=== PATIENT | female | born 1960 | race Caucasian/White ===

== ENCOUNTER 2019-04-20 03:38 | Inpatient (IN) ==
[2019-04-20] MEDS ORDERED: MORPHINE IV ONE (03:46)
[2019-04-20 04:06] LABS: BASO# 0.02 X1000 (0.0-0.2); BASO% 0.4 % (0.0-0.8); EOS# 0.06 X1000 (0.0-0.7); EOS% 1.1 % (0.0-10.0); HEMOGLOBIN 12.5 g/dL (12.0-16.0); LYMPH# 1.57 X1000 (1.2-3.4); LYMPH% 28.4 % (20.5-51.1); MCH 32.4 PG (27-31); MCHC 32.1 g/dL (33-37); MONO# 0.44 X1000 (0.11-0.59); MPV 9.3 FL (7.4-10.4); NEUT# 3.44 X1000 (1.4-6.5); NEUT% 62.1 % (42.2-75.2); PLT 305 X1000 (130-400); RBC 3.86 XMIL (4.2-5.4); WBC 5.53 X1000 (4.8-10.8)
[2019-04-20 04:43] LABS: AGAP 15; ALB/GLOB RATIO 1.7; ALKALINE PHOSPHATASE 119 U/L (32-104); BUN 16 mg/dL (8-22); CALCIUM 9.1 mg/dL (8.8-10.2); CHLORIDE 102 mmol/L (98-107); COSMO 285; CREATININE 0.7 mg/dL (0.5-0.9); ESTIMATED GFR > 60; GLUCOSE 169 mg/dL (70-104); GOT 27 U/L (10-30); GPT 23 U/L (10-36); POTASSIUM 3.7 mmol/L (3.5-5.1); SODIUM 140 mmol/L (136-145); TCO2 23 mmol/L (25-35); TOTAL BILIRUBIN 0.15 mg/dL (0.20-1.00); TOTAL PROTEIN 6.4 g/dL (6.3-8.3)
[2019-04-20 04:47] LABS: INR 0.95; PROTIME 12.7 Seconds (11.0-16.0)
[2019-04-20 04:48] LABS: PTT 26.2 Seconds (22.3-41.8)
--- NOTE | 2019-04-20 05:16 | PROVIDER DOCUMENTATION ---
HPI-General Adult - General Chief Complaint: Hip Injury Stated Complaint: FALL, HIP FX. Time Seen by Provider: 04/20/19 03:50 Source: patient, EMS Allergies/Adverse Reactions: Patient Allergies Allergy/AdvReac Type Severity Reaction Status Date / Time formaldehyde Allergy RASH Verified 01/14/19 09:08 Home Medications: Home Medication List Medication Instructions Recorded Confirmed Last Taken Type Cyclobenzaprine [Flexeril] 10 mg PO PRN PRN 10/12/15 01/13/19 12/14/17 19:00 History Estradiol 2 mg PO DAILY 10/12/15 01/13/19 12/14/17 06:00 History Lamotrigine 200 mg PO BID 10/12/15 01/13/19 12/14/17 06:00 History Ropinirole [Requip] 2 mg PO QHS 10/12/15 01/13/19 12/14/17 19:00 History Cholecalciferol (Vit D3) [Vitamin 300 mg PO DAILY 12/09/17 01/13/19 12/14/17 06:00 History D] Ergocalciferol (Vitamin D2) 1 dose PO Q7D 12/09/17 01/13/19 12/11/17 06:00 History [Vitamin D] Trazodone [Desyrel] 50 mg PO DAILY 12/09/17 01/13/19 12/14/17 19:00 History Ziprasidone HCl 80 mg PO DAILY 12/09/17 01/13/19 12/14/17 19:00 History Sertraline [Zoloft] 50 mg PO TID 12/15/17 01/13/19 12/13/17 15:00 History Hydrocodone/APAP 7.5 mg/325 mg 1 ea PO Q6H PRN PRN #12 tab 02/02/18 01/13/19 Unknown Rx [Lasara-7.5] Tramadol [Ultram] 50 mg PO Q6H PRN PRN #22 tab 01/13/19 Unknown Rx Cyclobenzaprine [Flexeril] 10 mg PO TID #20 tab 01/14/19 Unknown Rx Meloxicam [Mobic] 15 mg PO DAILY #20 tab 01/14/19 Unknown Rx - History of Present Illness -Gen Adult Nature of Presenting Problems: Pt presents s/p fall with left hip pain, pt had a trip and fall at home, landed on left side, now with sharp pain, constant, no radiation, pt denies f/c, saenz ,cp, sob, cough, ap, n/v/d. Pt is lying in bed in no acute distress. Location of Pain/Injury: reports: lower extremity (left hip) Pain Radiation: reports: no radiation Quality of Pain: reports: sharp Severity: reports: severe Onset/Duration: reports: just prior to arrival Timing: reports: still present Context/Activities at Onset: reports: none Modifying Factors: improves with: nothing Associated Symptoms: reports: denies symptoms Similar Symptoms Previously?: No Recently seen or treated by another doctor?: No Review of Systems - Adult - REVIEW OF SYSTEMS - ADULT Constitutional: reports: no symptoms reported Eyes: reports: no symptoms reported Ears, Nose, Mouth & Throat: reports: no symptoms reported Cardiovascular: reports: no symptoms reported Respiratory: reports: no symptoms reported Gastrointestinal: reports: no symptoms reported Genitourinary: reports: no symptoms reported Musculoskeletal: reports: see HPI Integumentary: reports: no symptoms reported Neurological: reports: no symptoms reported Psychiatric: reports: no symptoms reported Endocrine: reports: no symptoms reported Hematologic/Lymphatic: reports: no symptoms reported Allergic/Immunologic: reports: no symptoms reported All Other Systems: Reviewed and Negative Past History - Adult - PAST MEDICAL HISTORY-ADULT Review of Records: reports: Old Records Reviewed, Nursing Assessment Review, Medications Reviewed, Social history reviewed & non-contributory. Major Childhood Illnesses: reports: denies history Cardiovascular: reports: HTN Respiratory: reports: denies history Gastrointestinal: reports: denies history Obstetrical/Gynecological: reports: denies history Genitourinary: reports: denies history Musculoskeletal: reports: chronic pain (back) Neurological: reports: denies history Psychiatric: reports: bipolar, other (ADHD) Endocrine/Immune: reports: hypoglycemia Other Conditions: reports: denies history - PRIOR SURGERIES/PROCEDURES Surgical/Procedure History: reports: cholecystectomy, hysterectomy, tonsillectomy, hernia repair - PRIOR HOSPITALIZATIONS Prior Hospitalizations: reports: for other non-related - IMMUNIZATION STATUS Childhood Immunizations: See Nurse Assessment Flu Vaccine: See Nurse Assessment - FAMILY HISTORY Family History: reviewed, not pertinent Physical Exam-General - PHYSICAL EXAM-ADULT Initial Vital Signs Reviewed: Yes - CONSTITUTIONAL General Appearance: appears well - EYES Eyes: PERRL/EOMI - HEAD, EARS, NOSE, MOUTH & THROAT HENMT: normocephalic/atraumatic - NECK Neck: normal inspection - RESPIRATORY Respiratory: lungs clear, no respiratory distress, no accessory muscle use - CARDIOVASCULAR Cardiovascular: regular rate, rhythm - GASTROINTESTINAL (ABDOMEN) Abdominal Exam: normal bowel sounds, non tender, soft - LYMPHATIC Lymphatic: no adenopathy - MUSCULOSKELETAL Back Exam: normal inspection, no CVA tenderness, no vertebral tenderness Extremity: deformity, tenderness (left hip). negative: normal range of motion, normal inspection (shortened and ext rotated LLE) - SKIN Integumentary: normal color - NEUROLOGIC Neurologic: grossly normal - PSYCHIATRIC Psych/Mental Status: normal mood/affect Progress - PLAN OF CARE/RESULTS Progress/Plan/Lab Results: Vital Signs - 8 hr 04/20/19 03:46 04/20/19 03:48 Temperature 97.6 F Pulse Rate 79 78 Respiratory Rate 16 19 Blood Pressure 218/114 218/114 O2 Sat by Pulse Oximetry 96 94 L Laboratory Results - last 24 hr 04/20/19 04/20/19 04/20/19 03:54 03:54 03:54 WBC 5.53 RBC 3.86 L Hgb 12.5 Hct 39.0 MCV 101.0 H MCH 32.4 H MCHC 32.1 L RDW Std Deviation 13.0 Plt Count 305 MPV 9.3 Immature Gran % (Auto) 0.0 Neut % (Auto) 62.1 Lymph % (Auto) 28.4 Bibb % (Auto) 8.0 Eos % (Auto) 1.1 Baso % (Auto) 0.4 Immature Gran # (Auto) 0.00 Neut # (Auto) 3.44 Lymph # (Auto) 1.57 Bibb # (Auto) 0.44 Eos # (Auto) 0.06 Baso # (Auto) 0.02 PT 12.7 INR 0.95 PTT (Actin FS) 26.2 Sodium 140 Potassium 3.7 Chloride 102 Carbon Dioxide 23 L Anion Gap 15 BUN 16 Creatinine 0.7 Estimated GFR/1.73 m2 > 60 BUN/Creatinine Ratio 23 Glucose 169 H Calculated Osmolality 285 Calcium 9.1 Total Bilirubin 0.15 L AST 27 ALT 23 Alkaline Phosphatase 119 H Total Protein 6.4 Albumin 4.0 Globulin 2.4 Albumin/Globulin Ratio 1.7 Orders Category Date Time Status Nursing- Obtain EKG ONCE Care 04/20/19 03:45 Active CHEST-1 VIEW [RAD] Stat Exams 04/20/19 04:[address] HEAD W/O CONTRAST [CT] Stat Exams 04/20/19 03:45 Taken XRAY PELVIS W/HIP 2-3VW LT [RAD] Stat Exams 04/20/19 04:07 Taken CBC WITH ELECTRONIC DIFF [HEME] Stat Lab 04/20/19 03:54 Completed COMPREHENSIVE METABOLIC PANEL [CHEM] Stat Lab 04/20/19 03:54 Completed PROTIME WITH INR [COAG] Stat Lab 04/20/19 03:54 Completed PTT [COAG] Stat Lab 04/20/19 03:54 Completed Morphine Med 04/20/19 03:46 Discontinued 4 mg IV NOW ONE EKG [EKG] Stat Ther 04/20/19 03:45 Ordered Pt has left hip fracture, spoke with Dr. Marx and he will consult, will admit to Dr. Cardoza Result Diagrams: 04/20/19 03:54 04/20/19 03:54 Departure - Departure Date of Disposition Decision: 04/20/19 Time of Disposition Decision: 05:15 DIAGNOSIS: Closed left hip fracture Qualifiers: Encounter type: initial encounter Qualified Code(s): S72.002A - Fracture of unspecified part of neck of left femur, initial encounter for closed fracture Disposition: ADMITTED INPATIENT 09 Certified Medical Emergency: Emergent Condition: Stable Referrals and Follow-Ups: None,PCP [Primary Care Provider] - - Critical Care Note This patient required my direct & personal management of CC.: No Attestation - Physician/ BRITTANY Attestation Patient care was provided by Advanced Practice Provider:: No The physician spent face to face time with patient:: Yes Advanced Practice Provider documentation review:: Supervising physician onsite and consulted in the evaluation and care of this patient. The physician did have a face to face encounter with the patient.
--- NOTE | 2019-04-20 05:35 | Diag Imaging Result Doc PS360 ---
CT HEAD W/O CONTRAST - 04/20/2019 INDICATION: fall, head trauma COMPARISON: 12/29/2016 FINDINGS: There is a small to moderate left parietal scalp hematoma. No underlying skull fracture. The ventricles and sulci are normal in size and contour. No intracranial mass or hemorrhage. The sinuses, mastoids, and middle ears are clear. IMPRESSION: Left parietal scalp contusion. No intracranial injury. This exam was performed using automated exposure control, adjustment of mA or kV according to patient size, and/or use of iterative reconstruction technique Electronically signed by Gerardo Medrano 04/20/2019 5:33 AM
--- NOTE | 2019-04-20 05:41 | EKG Report ---
Test Performed on : 04/20/2019 03:57:42 AM Test Reason : FALL Blood Pressure : / mmHG Vent. Rate : 087 BPM Atrial Rate : 087 BPM P-R Int : 162 ms QRS Dur : 080 ms QT Int : 374 ms P-R-T Axes : 054 043 050 degrees QTc Int : 450 ms Normal sinus rhythm. Possible Left atrial enlargement Borderline ECG When compared with ECG of 14-DEC-2018 07:45, No significant change was found Unconfirmed Result
--- NOTE | 2019-04-20 07:00 | Diag Imaging Result Doc PS360 ---
EXAM: CHEST-1 VIEW 04/20/2019 HISTORY: fall TECHNIQUE: AP supine chest at 0421 COMMENT: The inspiration is less optimal than on 05/16/2017. Otherwise are has been no significant change. IMPRESSION: Stable chest. Electronically signed by Elliot Mancilla 04/20/2019 6:57 AM
--- NOTE | 2019-04-20 07:28 | Diag Imaging Result Doc PS360 ---
EXAM: XRAY PELVIS W/HIP 2-3VW LT 04/20/2019 HISTORY: fall, injury TECHNIQUE: AP pelvis and left hip three views COMMENT: There is a comminuted intertrochanteric fracture of the left femur. This was not present on 01/14/2019. There has been previous posterior fusion at L4-5. IMPRESSION: Left intertrochanteric fracture. Electronically signed by Elliot Mancilla 04/20/2019 7:25 AM
--- NOTE | 2019-04-20 08:56 | HISTORY AND PHYSICAL ---
PRIMARY CARE PHYSICIAN: None. CHIEF COMPLAINT: Fall. HISTORY OF PRESENTING ILLNESS: A 59-year-old female with a history of bipolar disorder. Apparently slipped on her dog bed and fell to the floor. She landed on her lateral left hip region. She developed moderate amount of pain and subsequently had come to the emergency department. In the ED, she was evaluated. She had imaging done which did show a left hip fracture. Her case was discussed with Orthopedics who recommended admission for further management. At the time of my examination, patient denied any headache, fever, chills, chest pain, shortness of breath, hemoptysis or any weight changes, but complained of left hip pain. PAST MEDICAL HISTORY: Includes bipolar disorder. PAST SURGICAL HISTORY: Hysterectomy, gastric bypass, back surgery, neck surgery, bilateral shoulder surgery, right knee surgery, cholecystectomy. ALLERGIES: No known drug allergies. CURRENT MEDICATIONS: She does not recall and nursing staff will reconcile. SOCIAL HISTORY: No history of smoking, alcohol or illicit drug use. FAMILY HISTORY: No history of coronary disease. REVIEW OF SYSTEMS: Fourteen point review of systems is as in HPI. Other systems negative. PHYSICAL EXAMINATION: GENERAL: Cooperative, friendly female. She is resting more comfortably now. VITAL SIGNS: Temperature 97.6 degrees, pulse 79, respirations 16, blood pressure 218/114. HEENT: Extraocular movements intact. PERRLA. NECK: No masses. CHEST: Clear to auscultation. CARDIOVASCULAR: Regular rate and rhythm. ABDOMEN: Soft, positive bowel sounds. EXTREMITIES: Left hip tenderness. NEUROLOGIC: She is awake, alert, oriented x3. GENITOURINARY: No bladder distention. SKIN: Warm. LABORATORIES AND STUDIES: WBCs 5.53 hemoglobin 12.5, hematocrit 39.0, platelets 305,000. Sodium 140, potassium 3.7, chloride 102, CO2 23, BUN is 16, creatinine 0.7, glucose 169. CT of the head shows left parietal scalp contusion. No intracranial injury. ASSESSMENT: A 59-year-old female with a history of bipolar disorder apparently slipped on a dog bed and fell on a tile floor. She developed moderate amount of moderate amount of pain in the left hip region. She was brought to the emergency department. She had imaging done which did show a left hip fracture. Subsequently, she will require admission for further management. 1. Status post mechanical fall. 2. Left hip fracture. 3. Scalp contusion. 4. Bipolar disorder. PLAN: 1. We will admit patient to medical floor with telemetry. 2. We will keep patient NPO. Continue with gentle hydration, antiemetics, pain control. 3. Orthopedics has been consulted by ED physician. 4. We will hold home medications for now. 5. We will start DVT prophylaxis after the patient has a surgery. 6. We will continue to follow and reassess. Make further recommendation based on patient's clinical course. cc: Helder Cardoza MD
[2019-04-20] MEDS: ZOFRAN IV PRN ×3 (09:27→20:30)
[2019-04-20] MEDS: MORPHINE IV PRN ×3 (09:28→20:27)
[2019-04-20] MEDS ORDERED: FLU VACCINE IM ONE (10:59)
[2019-04-20] MEDS: TYLENOL PO PRN ×2 (12:57→23:35)
[2019-04-20] MEDS ORDERED: DIPRIVAN 1% ONE (14:12)
[2019-04-20] MEDS ORDERED: KEFZOL 1 GM/D5W 2 GM/100 ML IVPB ONE (14:58)
[2019-04-20] MEDS ORDERED: ZOFRAN ONE (15:24)
[2019-04-20] MEDS ORDERED: DILAUDID ONE (15:24)
[2019-04-20] MEDS ORDERED: DECADRON ONE (15:24)
[2019-04-20] MEDS ORDERED: XYLOCAINE-MPF 2% ONE (15:24)
[2019-04-20] MEDS ORDERED: TORADOL ONE (15:24)
[2019-04-20] MEDS: DILAUDID ONE ×4 (16:27→16:47)
[2019-04-20] MEDS ORDERED: OXY IR ONE (16:54)
[2019-04-20] MEDS: TYLENOL PO SCH (17:49)
--- NOTE | 2019-04-20 18:21 | ORTHOPAEDICS CONSULTATION ---
DATE: 04/20/2019 CHIEF COMPLAINT: Left hip pain. HISTORY OF PRESENT ILLNESS: Ms. Tenorio is a 59-year-old female who fell. She presented to the emergency department and was diagnosed with a hip fracture. Orthopedics was consulted. Most of her pain is in the left hip. It is worse when she tried to put weight on it. She denies any pain anywhere else. PAST MEDICAL HISTORY: Bipolar. PAST SURGICAL HISTORY: Gastric bypass, bilateral shoulder surgery and a right knee surgery. ALLERGIES: No known drug allergies. CURRENT MEDICATIONS: Per the medical record. SOCIAL HISTORY: She denies any smoking or alcohol use. FAMILY HISTORY: Negative for anesthesia related issues. REVIEW OF SYSTEMS: Positive for left hip pain. All other systems are essentially negative. PHYSICAL EXAMINATION: General: Ms. Tenorio is lying in bed. She is in no acute distress. Head and Neck: Normocephalic, atraumatic. Respirations: Nonlabored. Cardiovascular: Regular rate. Abdomen: Is nondistended. Extremities: Left lower extremity exam: She has tenderness to palpation of the hip. The hip is just a little bit shortened compared to the right side. She has good sensation to light touch to the toes and 2+ DP pulse. RADIOGRAPHS: Two views left hip shows an intertrochanteric hip fracture with a little bit of comminution. ASSESSMENT: Left intertrochanteric hip fracture. PLAN: I discussed Ms. Tenorio and her family member about operative intervention. I went over with them about left trochanteric femoral nailing. I went over with them the procedure, risks, benefits, potential complications. Risks include, but are not limited to infection, wound healing problems, damage to nerves, arteries, veins, numbness, malunion, nonunion, hardware related issues, continued pain, deep vein thrombosis, and anesthesia related risks. After discussing these with the patient, she expressed understanding and wished to proceed. We will plan on doing this today. She will remain nothing by mouth. cc: Nathan Marx MD
[2019-04-20] MEDS: OXY IR PO PRN (23:35)
[2019-04-20] MEDS: KEFZOL 1 GM/D5W 1 GM/50 ML IVPB IV SCH (23:35)
[2019-04-20] MEDS: PERIDEX MT SCH (23:59)
[2019-04-20] MEDS: COLACE PO SCH (23:59)
[2019-04-21] MEDS: MORPHINE IV PRN ×4 (01:16→11:40)
[2019-04-21] MEDS: TYLENOL PO SCH ×3 (01:18→17:15)
[2019-04-21] MEDS: ZOFRAN IV PRN ×2 (01:29→07:06)
[2019-04-21] MEDS: OXY IR PO PRN ×6 (02:45→22:00)
[2019-04-21 04:12] LABS: URINE SOURCE CATH
--- NOTE | 2019-04-21 04:16 | OPERATIVE NOTE ---
PROCEDURE DATE: 04/20/2019 PREOPERATIVE DIAGNOSIS: Left intertrochanteric hip fracture. POSTOPERATIVE DIAGNOSIS: Left intertrochanteric hip fracture. PROCEDURE: Left trochanteric femoral nailing for hip fracture. SURGEON: Dr. Nathan Marx. WEIGHER AND CHARGER: EARNEST Peña, who was an integral part of the case, helping with all aspects of the case helping to increase our OR efficiency greatly. ANESTHESIA: General with LMA. BLOOD LOSS: About 100 mL. IMPLANT: Synthes trochanteric femoral nail size 11 x 360 and a 95 helical blade. DISPOSITION: To PACU, hemodynamically stable. INDICATION FOR PROCEDURE: Ms. Tenorio is a 59-year-old female who presented to the emergency department early this morning with hip pain. She was found to have a left intertrochanteric hip fracture. She was admitted per the hospitalist service. I discussed with her and her family about operative intervention. They expressed understanding and wished to proceed. DESCRIPTION OF PROCEDURE: Ms. Tenorio was identified in the preoperative holding area. The left hip was marked as correct surgical site. She was then wheeled to the operating room, placed supine on the operating table. All bony prominences were well padded. She was induced under general anesthesia. LMA was placed. She was then put in the traction boots on the table and some slight traction was pulled at the left lower extremity. Left lower extremity was then prepped with chlorhexidine, gluconate scrub and then ChloraPrep, and draped in normal sterile fashion. Surgical pause was performed. We identified the correct patient, the correct side, and the correct procedure. Preop antibiotics were given. I started with fluoroscopic imaging, which showed we had a good reduction both AP and lateral views. I then made an incision just proximal to the greater trochanter. I had to make it up a little bit higher secondary to the amount of subcutaneous tissue that she had laterally. I got my guidewire down in position and got it in good position in both AP and lateral views. I then drilled. I then passed my ball-tipped guidewire down past the fracture site to the level of the superior aspect of the patella. I measured to 360. I then sequentially reamed up to a size 12. We checked and she had really good bone chatter. We then put the nail down. I made an incision on the mid thigh and then got my guidewire in. We were just a little bit posterior on the head but we were center on the AP view. I then drilled, placed the helical blade and locked into place. We then removed the outrigger guide. Final images were taken which showed we had a really good reduction of her fracture, good position of our hardware in both AP and lateral views. I then came distal and placed 2 interlocking screws under perfect [place] technique. One in the distal interlocking hole and 1 in the dynamic hole. We then closed everything in a layered fashion, 0 Vicryl for the deep layer, 2-0 Vicryl for the subcutaneous and kris on the skin. Island dressings were placed. She was then taken out of traction, moved to her own bed and taken to PACU in stable condition. PLAN: Postoperatively, she will be weight bear as tolerated left lower extremity. I will see her tomorrow morning. cc: Nathan Marx MD
[2019-04-21 04:18] LABS: BILIRUBIN URINE NEGATIVE (NEGATIVE); BLOOD URINE NEGATIVE (NEGATIVE); COLOR YELLOW; GLUCOSE URINE NEGATIVE (NEGATIVE); KETONE URINE TRACE mg/dL (NEGATIVE); LEUKOCYTES URINE TRACE (NEGATIVE); NITRITE URINE NEGATIVE (NEGATIVE); PROTEIN URINE 50 mg/dL (NEGATIVE); SP GRAVITY URINE 1.035; TURBIDITY URINE CLEAR (CLEAR); UROBILINOGEN URINE NORMAL (NORMAL)
[2019-04-21 04:31] LABS: UR EPITHELIAL CELLS <10 /HPF (<10); URINE BACTERIA NEGATIVE /HPF; URINE RBC <10 /HPF (<10); URINE WBC 20-40 /HPF (<10)
[2019-04-21 05:03] LABS: URINE CASTS GRANULAR PRESENT; URINE CRYSTALS CA OXALATE PRESENT; URINE SMALL ROUND CELLS NONE SEEN; URINE YEAST PRESENT
[2019-04-21 06:53] LABS: BASO# 0.01 X1000 (0.0-0.2); BASO% 0.1 % (0.0-0.8); EOS# 0.01 X1000 (0.0-0.7); EOS% 0.1 % (0.0-10.0); HEMATOCRIT 31.5 % (37.0-47.0); HEMOGLOBIN 9.9 g/dL (12.0-16.0); LYMPH# 1.04 X1000 (1.2-3.4); LYMPH% 15.1 % (20.5-51.1); MCH 32.8 PG (27-31); MCHC 31.4 g/dL (33-37); MCV 104.3 FL (81-99); MONO# 0.69 X1000 (0.11-0.59); NEUT# 5.12 X1000 (1.4-6.5); NEUT% 74.7 % (42.2-75.2); PLT 293 X1000 (130-400); RBC 3.02 XMIL (4.2-5.4); RDW 13.1 % (11.5-14.5); WBC 6.87 X1000 (4.8-10.8)
[2019-04-21] MEDS: KEFZOL 1 GM/D5W 1 GM/50 ML IVPB IV SCH ×2 (07:05→15:32)
[2019-04-21 07:08] LABS: CALCIUM 9.3 mg/dL (8.8-10.2); CREATININE 1.2 mg/dL (0.5-0.9); POTASSIUM 4.6 mmol/L (3.5-5.1)
[2019-04-21] MEDS: PERIDEX MT SCH ×3 (08:03→21:59)
[2019-04-21] MEDS: FERROUS SULFATE PO SCH (08:03)
[2019-04-21] MEDS ORDERED: NON-FORMULARY MED PO SCH (09:00)
[2019-04-21] MEDS: ADDERALL PO SCH (10:08)
[2019-04-21] MEDS: NEURONTIN PO SCH (10:09)
--- NOTE | 2019-04-21 19:47 | ORTHOPAEDICS PROGRESS NOTE ---
DATE: 04/21/2019 SUBJECTIVE: Ms. Tenorio is sitting comfortably in the bed. She is eating breakfast. She is complaining of some left hip pain. OBJECTIVE: The incision looks good, no erythema or drainage. She is able to dorsiflex and plantar flex the foot. She has good sensation to that left lower extremity. She has a 2+ pedal pulse. ASSESSMENT: Left intertrochanteric hip fracture. PLAN: Ms. Tenorio will work with physical therapy today. She can be full weightbearing as tolerated. We are going to have [facility] see her and decide whether she can do rehab. She is young, so if she has a good support system at home we are okay with her going home with home health. We will let Social Service discuss this with them, but again she can be full weightbearing to this hip. She will need to follow up with Dr. Marx in 2 weeks from discharge. Dictated by EARNEST Peña for Nathan Marx MD cc: EARNEST Peña MD
[2019-04-21] MEDS: COLACE PO SCH (21:55)
[2019-04-21] MEDS ORDERED: NS 1,000 ML IV ONE (22:12)
[2019-04-22] MEDS: ADDERALL PO SCH ×3 (00:07→20:06)
[2019-04-22] MEDS: TYLENOL PO SCH ×3 (01:11→16:38)
[2019-04-22] MEDS: MORPHINE IV PRN ×5 (01:12→21:34)
[2019-04-22] MEDS: OXY IR PO PRN ×4 (05:56→16:38)
[2019-04-22 07:21] LABS: AGAP 12; BUN 15 mg/dL (8-22); CALCIUM 9.3 mg/dL (8.8-10.2); CHLORIDE 94 mmol/L (98-107); COSMO 271; CREATININE 0.7 mg/dL (0.5-0.9); ESTIMATED GFR > 60; GLUCOSE 126 mg/dL (70-104); POTASSIUM 4.5 mmol/L (3.5-5.1); SODIUM 134 mmol/L (136-145); TCO2 28 mmol/L (25-35)
[2019-04-22 07:33] LABS: HEMATOCRIT 25.6 % (37.0-47.0); HEMOGLOBIN 8.2 g/dL (12.0-16.0)
--- NOTE | 2019-04-22 07:39 | PROGRESS NOTE ---
DATE: 04/21/2019 SUBJECTIVE: The patient has no major complaints. OBJECTIVE: Vital signs: Blood pressure 134/79, heart rate 87, respiratory rate 22, temperature 98.5 degrees. Cardiovascular: Regular rate and rhythm. Pulmonary: Bilateral breath sounds clear to auscultation. Gastrointestinal: Soft, nontender, nondistended. Bowel sounds were positive. LABORATORY DATA: White count 6, hemoglobin and hematocrit 9.9 and 31.5, platelets of 293,000. Creatinine went up to 1.2. PROBLEM LIST: 1. Left hip fracture status post open reduction and internal fixation. She seems to be doing okay. 2. Bipolar disorder. We will continue current medications. 3. Acute kidney injury. We will continue gentle hydration, hold any nephrotoxic drugs and follow closely. DISPOSITION: Pending her clinical status. cc: Jonn Davis MD
[2019-04-22] MEDS: PERIDEX MT SCH ×2 (08:41→21:34)
[2019-04-22] MEDS: NEURONTIN PO SCH (08:41)
[2019-04-22] MEDS: VRAYLAR PO SCH (08:41)
[2019-04-22] MEDS: FERROUS SULFATE PO SCH (08:41)
[2019-04-22] MEDS: ZOFRAN IV PRN ×2 (10:15→21:34)
[2019-04-22] MEDS: MIRALAX PO SCH ×2 (16:38→21:35)
--- NOTE | 2019-04-22 17:58 | EKG Report ---
Test Performed on : 04/22/2019 3:55:55 PM Test Reason : Follow up heart rhythm Blood Pressure : / mmHG Vent. Rate : 094 BPM Atrial Rate : 094 BPM P-R Int : 152 ms QRS Dur : 078 ms QT Int : 358 ms P-R-T Axes : 034 024 070 degrees QTc Int : 447 ms Normal sinus rhythm. Normal ECG When compared with ECG of 20-APR-2019 03:57, (Unconfirmed) No significant change was found Confirmed by Barbara HUERTA, Christopher ([id number]) on 04/24/2019 8:27:41 AM
[2019-04-22] MEDS ORDERED: LOVENOX SUBQ SCH (18:00)
[2019-04-22] MEDS: COLACE PO SCH (21:33)
--- NOTE | 2019-04-23 00:42 | ORTHOPAEDICS PROGRESS NOTE ---
DATE: 04/22/2019 SUBJECTIVE: Ms. Tenorio is lying in bed this morning. She is having a little more pain today. Physical therapy did get her up moving yesterday and she sat in the chair for a little bit. OBJECTIVE: Left lower extremity exam, dressing is clean, dry, and intact. She remains neurovascularly intact left lower extremity. ASSESSMENT: Status post left trochanteric femoral nailing for hip fracture. PLAN: I think Ms. Tenorio is progressing well. We are going to really shoot to get her rehab. Outpatient Phlebotomist will continue to work on that Wednesday morning. She is weight bear as tolerated. cc: Nathan Marx MD
[2019-04-23] MEDS: TYLENOL PO SCH ×3 (01:14→15:19)
[2019-04-23] MEDS: OXY IR PO PRN ×5 (01:14→21:48)
--- NOTE | 2019-04-23 01:25 | PROGRESS NOTE ---
DATE: 04/22/2019 INTERVAL HISTORY: No acute events overnight. Her pulse has been in 90s to 100s. Her blood pressure is normal. She has a drop in her hemoglobin. Her scalp contusion is stable. She has not had any bowel movement. We discussed about adding MiraLAX to her regimen. Social work rehab consult has been placed. The patient denies chest pain, shortness of breath, nausea, vomiting, abdominal pain. She has not had a bowel movement. OBJECTIVE: Vitals: Temperature 98.6 degrees, pulse 91, respiratory 20, blood pressure 130/73, saturating 97% on room air. General: Not in acute distress. HEENT: Left parietal scalp hematoma is stable, mildly tender. Oral cavity is moist. No pharyngeal congestion. Lungs: Air entry bilaterally equal. No wheeze, rhonchi, crackles. Cardiovascular: S1, S2 normal. No murmur or gallop. Abdomen: Soft. Active bowel sounds. Nontender. Extremities: No lower extremity edema. Left thigh incision is intact and dressed. She is able to wiggle toes bilaterally. Neurologic: She is alert oriented x3. LABS: Suggestive of acute blood loss anemia with hemoglobin of 8.2, hyponatremia, hypochloremia, resolution of acute kidney injury. No positive microbiological data. No new imaging. ASSESSMENT AND PLAN: 1. Left femoral intertrochanteric comminuted fracture of femur, status post open reduction internal fixation with left trochanteric femoral nailing. Today is postoperative day 2. After discussion with the patient, we decided to continue intravenous morphine until tomorrow morning and continue oral oxycodone along with it. She is also on scheduled acetaminophen. Her intravenous fluids have been stopped. I will start her on deep venous thrombosis prophylaxis and follow up with hemoglobin tomorrow. 2. Bipolar mood disorder. I will continue her home amphetamine, Cariprazine, gabapentin. 3. Constipation. I will start patient on MiraLAX and continue her on her docusate. DISPOSITION: The patient is requiring a good amount of help to come out of bed and is willing to go to rehab. Social work rehab has been consulted. cc: Petar Maldonado MD
[2019-04-23 06:55] LABS: HEMATOCRIT 23.4 % (37.0-47.0); HEMOGLOBIN 7.3 g/dL (12.0-16.0)
[2019-04-23] MEDS: ADDERALL PO SCH ×3 (08:04→20:03)
[2019-04-23] MEDS: VRAYLAR PO SCH (08:04)
[2019-04-23] MEDS: MIRALAX PO SCH ×2 (08:05→21:19)
[2019-04-23] MEDS: NEURONTIN PO SCH (08:05)
[2019-04-23] MEDS: FERROUS SULFATE PO SCH (08:05)
--- NOTE | 2019-04-23 14:17 | PROGRESS NOTE ---
DATE: 04/23/2019 INTERVAL HISTORY: No acute events overnight. Her intravenous opioids were discontinued, and the patient has been tolerating the oral opioids without any difficulty. She does have a drop in her hemoglobin without any symptoms at the moment. She has not had any bowel movement so far. We discussed about increasing her bowel regimen. Her EKG had normal sinus rhythm. She denies cough or burning during micturition. VITALS: Temperature 98.8 degrees, pulse 85, respiratory rate 20, blood pressure 140/80, saturating 100% on room air. PHYSICAL EXAMINATION: General: Ms. Tenorio is not in acute distress. HEENT: Oral cavity is moist. Lungs: Air entry bilaterally equal. No wheeze, rhonchi, or crackles. Cardiovascular: S1, S2 normal. Regular. No murmur, rub, or gallop. Abdomen: Obese, soft, nontender. Active bowel sounds. Extremities: No lower extremity edema. Left lateral thigh incision is oozing. Input and Output: Suggests she has not had any bowel movement. LABS: Suggestive of drop in her hemoglobin. No BMP today. Repeat CBC and BMP have been ordered for tomorrow. No positive microbiological data. No new imaging. ASSESSMENT AND PLAN: 1. Left femoral intertrochanteric comminuted fracture of femur, status post open reduction internal fixation with left trochanteric femoral nailing. Today is postoperative day 3. Continue oral oxycodone for pain management as well as scheduled acetaminophen. 2. Acute blood loss anemia, likely due to intraoperative blood loss. I will follow up with hemoglobin tomorrow and will transfuse with a goal of keeping hemoglobin more than 7. I will continue her on oral iron. 3. Constipation. Continue MiraLAX, docusate, and add bisacodyl suppositories. She has active bowel sounds. 4. Bipolar mood disorder. Continue home amphetamine, cariprazine and gabapentin. 5. DVT prophylaxis. She received a dose of enoxaparin yesterday, which I will hold considering her wound is oozing, and I will restart it once proper hemostasis has been achieved. 6. Disposition. Awaiting rehab to [facility] in next 24 to 48 hours. Plan of care discussed with the patient. She is in agreement. All of her questions have been answered. cc: Petar Maldonado MD
[2019-04-23] MEDS: PERIDEX MT SCH ×2 (14:29→21:20)
[2019-04-23] MEDS: DULCOLAX PR SCH ×2 (16:01→21:21)
[2019-04-23] MEDS: COLACE PO SCH (21:20)
[2019-04-24] MEDS: OXY IR PO PRN ×4 (01:52→15:01)
[2019-04-24] MEDS: TYLENOL PO SCH ×2 (04:29→10:46)
[2019-04-24 07:11] LABS: BASO# 0.01 X1000 (0.0-0.2); BASO% 0.2 % (0.0-0.8); EOS# 0.03 X1000 (0.0-0.7); EOS% 0.7 % (0.0-10.0); HEMATOCRIT 23.6 % (37.0-47.0); HEMOGLOBIN 7.4 g/dL (12.0-16.0); LYMPH# 1.02 X1000 (1.2-3.4); LYMPH% 22.8 % (20.5-51.1); MCH 31.9 PG (27-31); MCHC 31.4 g/dL (33-37); MCV 101.7 FL (81-99); MONO# 0.46 X1000 (0.11-0.59); MONO% 10.3 % (1.7-9.3); MPV 9.9 FL (7.4-10.4); NEUT# 2.96 X1000 (1.4-6.5); PLT 301 X1000 (130-400); RBC 2.32 XMIL (4.2-5.4); RDW 12.8 % (11.5-14.5); WBC 4.48 X1000 (4.8-10.8)
[2019-04-24 07:41] LABS: AGAP 5; BUN 11 mg/dL (8-22); CALCIUM 9.5 mg/dL (8.8-10.2); CHLORIDE 97 mmol/L (98-107); COSMO 272; CREATININE 0.5 mg/dL (0.5-0.9); ESTIMATED GFR > 60; GLUCOSE 111 mg/dL (70-104); MAGNESIUM 1.8 mg/dL (1.5-2.7); POTASSIUM 4.1 mmol/L (3.5-5.1); SODIUM 136 mmol/L (136-145); TCO2 34 mmol/L (25-35)
--- NOTE | 2019-04-24 10:37 | ORTHOPAEDICS PROGRESS NOTE ---
DATE: 04/24/2019 SUBJECTIVE DATA: Ms. Tenorio is lying in bed. She states overall she is doing much better. She has been walking more. She is worried that her incision has been draining. OBJECTIVE DATA: On left lower extremity exam the dressing is clean, dry, and intact. She does have a little bit of bloody drainage. She remains neurovascularly intact to the left lower extremity. She does have a little bit of hematoma, but overall that area is nice and soft. ASSESSMENT: Status post left trochanteric femoral nailing for hip fracture. PLAN: Ms. Tenorio is progressing well. We are planning to get her to a rehab. Hopefully, [facility] will hear something about that today. She is weightbearing as tolerated. We will plan to follow up with her in 1 to 2 weeks following her discharge. Dictated by EARNEST Peña for Nathan Marx MD cc: EARNEST Peña MD [facility]
[2019-04-24] MEDS: PERIDEX MT SCH (10:45)
[2019-04-24] MEDS: NEURONTIN PO SCH (10:45)
[2019-04-24] MEDS: FERROUS SULFATE PO SCH (10:45)
[2019-04-24] MEDS: ADDERALL PO SCH (10:46)
[2019-04-24] MEDS: VRAYLAR PO SCH (10:46)
[2019-04-24] MEDS: MIRALAX PO SCH (10:46)
[2019-04-24] MEDS: DULCOLAX PR SCH (10:47)
[2019-04-24 12:27] VITALS: BP 153/74
--- NOTE | 2019-04-24 13:05 | DISCHARGE SUMMARY ---
ADMISSION DATE: 04/20/2019 DISCHARGE DATE: 04/24/2019 DISCHARGE DISPOSITION: Rehab. DISCHARGE CONDITION: Hemodynamically stable. Her hemoglobin is stable. Her left thigh wound is oozing a little bit, so she was advised to start enoxaparin 3 days later if her hemoglobin is more than 7 at rehab, for DVT prophylaxis. Ms. Tenorio denies any chest pain, shortness of breath, nausea, vomiting, abdominal pain. She had a good bowel movement. I explained to her about balancing bleeding risk versus DVT risk. She understood it. She is willing to work with Physical Therapy at the rehab. DISCHARGE PHYSICAL EXAMINATION: Vital Signs: Temperature 98.4 degrees, pulse 85, respiratory rate 16, blood pressure 150/70, she is saturating 100% on room air. HEENT: Oral cavity is moist. Lungs: Air entry bilaterally equal. No wheeze, rhonchi, or crackles. Cardiovascular: S1, S2 normal. No murmur, rub, or gallop. Abdomen: Soft, nontender. She had a bowel movement. Extremities: No lower extremity edema. She is able to, with help, transfer herself out of bed to the chair. DISCHARGE DIAGNOSES: 1. Left femoral intertrochanteric comminuted fracture of femur. 2. Acute blood loss anemia. 3. Constipation. OTHER DIAGNOSES: 1. History of bipolar mood disorder. 2. History of restless legs syndrome. DISCHARGE MEDICATIONS: Ropinirole 2 mg at nighttime, Adderall 15 mg tablet 15 mg b.i.d., trazodone 50 mg daily, Flexeril 10 mg as needed for muscle spasm, lamotrigine 200 mg b.i.d., vitamin D2 at 50,000 every 7 days, vitamin D3 at 5000 unit capsule daily, Vraylar or cariprazine 3 mg daily, sertraline 100 mg daily, ferrous sulfate 325 mg daily, gabapentin 800 mg daily, MiraLAX 17 grams b.i.d., oxycodone immediate-release 5 mg every 6 hours as needed for pain more than 7/10 (25 tablets have been prescribed), acetaminophen 1000 mg every 8 hours as needed for pain less than 7/10, enoxaparin 40 mg subcutaneously every 24 hours to be started on 04/26/2019 onwards if her repeat hemoglobin is more than 7. LABORATORY DATA DURING HOSPITAL ADMISSION AND DISCHARGE: Her WBC is 4.4, hemoglobin is 7.4, platelets 305,000. Potassium is 4.1, BUN 11, creatinine 0.5. MICROBIOLOGY: Her urine culture did not have any growth. SIGNIFICANT IMAGING DURING HOSPITAL ADMISSION: Chest x-ray was stable on 04/20/2019 without any acute cardiopulmonary process. Hip and pelvis x-ray: Left intertrochanteric fracture, which was comminuted on 04/20/2019. Head CT on presentation had left parietal scalp contusion, without intracranial injury. Electrocardiogram had normal sinus rhythm. PROCEDURES DURING HOSPITAL ADMISSION: The patient underwent left trochanteric femoral nailing for hip fracture on 04/20/[address] Marx. DISCHARGE INSTRUCTIONS: She was provided instructions about working with Physical Therapy to help get stronger. She was also discussed about getting repeat blood count done within 2 to 3 days, and if her hemoglobin was stable and her if her left thigh wound was not oozing, then to start her on enoxaparin for DVT prophylaxis. HOSPITAL COURSE SUMMARY: Ms. Tenorio is a 59-year-old lady with a past medical history of restless legs syndrome and bipolar mood disorder, who presented on 04/20/2019 after a mechanical fall. Apparently, she slipped on her dog bed, and fell to the floor, and she landed on her lateral left hip, and she developed a moderate amount of pain, and subsequently had to come to the emergency room. She had also hit her head at that time. In the emergency room, x-ray of the left hip had suggested left intertrochanteric comminuted femoral fracture and scalp hematoma, without any intracranial injury, so she was admitted for further management. Orthopedic team was consulted. She underwent left intertrochanteric femoral nailing on 04/20/2019, which she tolerated well. Postoperatively, she did have a drop in her hemoglobin, though it was more than 7, and she did not develop significant tachycardia, so it was decided not to transfuse her, and she was started on oral iron supplement, which she has been tolerating well. The patient would benefit from going to the rehab to help her get stronger since she is needing significant help to get out of bed. TIME SPENT: More than 30 minutes of time was spent in discharging this patient. Plan of care was extensively discussed with her, including risk of DVT versus bleeding, and all of her questions were satisfactorily answered. cc: Petar Maldonado MD
[2019-04-25] MEDS ORDERED: LOVENOX SUBQ SCH (09:45)
== END 2019-04-24 15:26 | DRG 481 ==
LOC: SUPCPDRO → ED 03:38 → SUATTDRO 07:52 → EDIPHOLD 07:52 → 4N 08:55
PROVIDERS: ATTEND Internal Medicine